=== PATIENT | female | born 1990 | race Caucasian/White ===

== ENCOUNTER → 2021-04-02 | Outpatient (CLI) | payer OTHER ==
[~2021-04-02] MED LIST: HYDROCODON-ACE1 EAC4 PO; ZOFRAN ODT 4 MG4 MG PO
== END ==
LOC: US 09:53
DX: R10.9 Unspecified abdominal pain (principal); K82.8 Other specified diseases of gallbladder
CPT/HCPCS: 76705

== ENCOUNTER 2021-07-20 13:23 | Emergency (ER) | payer OTHER ==
[2021-07-20 16:18] LABS: HEMOGLOBIN 14.3 gm/dl (12.3-15.3); RED BLOOD COUNT 4.99 M/UL (4.00-5.10); WHITE BLOOD COUNT 8.3 K/UL (4.5-11.0)
[2021-07-20 16:43] LABS: BUN/CREATININE RATIO 10 (0-10)
== END 2021-07-20 18:55 | disposition home or self-care (01) ==
LOC: ER1 13:23
PROVIDERS: Physician Assistant Medical
DX: M25.511 Pain in right shoulder (principal); F17.210 Nicotine dependence, cigarettes, uncomplicated; Z88.1 Allergy status to other antibiotic agents; V49.40XA Driver injured in collision with unspecified motor vehicles in traffic accident, initial encounter; Y92.410 Unspecified street and highway as the place of occurrence of the external cause
CPT/HCPCS: 71111; 72125; 73030; 80053; 85025; 99284; Q9967

== ENCOUNTER → 2021-11-30 | Outpatient (CLI) | payer SELFPAY | LOC: KOH-I 10:22 | DX: M25.571 Pain in right ankle and joints of right foot (principal) | CPT/HCPCS: 73610 ==

== ENCOUNTER 2021-12-19 19:55 | Emergency (ER) | payer OTHER ==
[2021-12-19 20:55] LABS: HEMOGLOBIN 14.8 gm/dl (12.3-15.3); RED BLOOD COUNT 4.92 M/UL (4.00-5.10); WHITE BLOOD COUNT 15.2 K/UL (4.5-11.0)
[2021-12-19 21:26] LABS: BUN/CREATININE RATIO 13 (0-10)
== END 2021-12-20 02:58 | disposition home or self-care (01) ==
LOC: ER1 19:55
PROVIDERS: Physician Assistant
DX: R07.89 Other chest pain (principal); F17.200 Nicotine dependence, unspecified, uncomplicated; Z88.1 Allergy status to other antibiotic agents; Z88.6 Allergy status to analgesic agent
CPT/HCPCS: 71045; 80053; 82550; 82553; 84484; 85025; 85379; 93005; 99283